=== PATIENT | female | born 1990 | race Caucasian/White ===

== ENCOUNTER 2019-02-28 21:04 | Emergency (ER) | payer MEDICAID, SELFPAY ==
[2019-02-28 21:08] VITALS: BP 101/62; PULSE 77; RESP 18; TEMP 36.6; O2SAT 98
[2019-02-28] MEDS: Metoclopramide 10 MG/2 ML VIAL IVP (21:25)
[2019-02-28] MEDS: Lactated Ringers 1,000 ML 1000 ML IV (21:26)
[2019-02-28] MEDS: Loperamide 2 MG CAP 4 MG PO (21:26)
[2019-02-28] MEDS: Metoclopramide 10 MG TAB 20 MG PO (21:45)
--- NOTE | 2019-02-28 21:45 | ED.GENADUL_ITS ---
Discharge Plan Disposition Patient Disposition: HOME Condition: Stable Discharge Details Chief Complaint: Abd Prob Clinical Impression: Nausea, vomiting and diarrhea Primary Care Provider: Jess Yadav ED Provider: Bora Roberts Home Meds and New Rx's Prescriptions: No Action methadone 10 mg/mL Solution 70 mg DAILY RF: 0 Discharge Instructions Instructions: Acute Nausea and Vomiting (ED) Additional Instructions: 1. Drink plenty of fluids. Add solids as tolerated. 2. Continue all medications as prescribed. 3. Acetaminophen 1000mg every 4 hours (up to 5 time a day) and/or ibuprofen 600mg every 6 hours as needed for fever or pain. 4. Reglan (metoclopramide) 10 mg every 6 hours as needed for nausea/vomiting. 5. Zantac 300 mg at bedtime. Return to the Emergency Department (ED) if your condition worsens, does not improve as expected, or for ANY other concerns. Specifically, return if you have new or uncontrolled pain, worsening fever, difficulty breathing, vomiting, or are unable to drink fluids. Stand Alone Forms: Work Release Medical Decision Making 28-year-old presents with recurrent nausea, vomiting, and diarrhea with associated crampy generalized abdominal pain. Nontoxic in appearance with minimal abdominal tenderness and otherwise a full normal exam. Clinically improved after receiving IV crystalloid and IV metoclopramide. Later receiving oral Imodium and oral ranitidine. Discharged home with to oral Reglan and a plan for outpatient follow-up. Pt evaluated immediately prior to discharge with improved symptoms, normal vital signs, and tolerating PO. The patient feels appropriate for discharge home. Discussed clinical/diagnostic findings. Discharged with a clear plan for outpatient follow up. Given usual and customary return instructions prior to discharge. Medical Records Medical records reviewed: Yes I reviewed the patient's medical records. HPI 28-year-old woman with a history of asthma, tobacco abuse. Presents with 1 day of persistent nausea, emesis, and diarrhea. Also has had associated crampy abdominal pain. Is been unable to tolerate oral intake without emesis. Emesis has been nonbilious and nonbloody. Denies melena, hematochezia, or diarrhea. H as no history of recurrent abdominal pain or similar symptoms. Denies a history of biliary disease or pancreatitis. Otherwise also denies fever/chills, dyspnea, chest pain, palpitations, urinary symptoms. Denies that she is . General Date/Time Provider Initiated Documentation: 02/28/19 21:16 . Related Data Home Medications Medication Instructions Recorded Confirmed methadone 70 mg DAILY 02/28/19 02/28/19 Allergies Allergy/AdvReac Type Severity Reaction Status Date / Time poison oak extract Allergy Intermediate Skin Rash Unverified 02/28/19 21:08 poison sumac extract Allergy Intermediate Skin Rash Unverified 02/28/19 21:08 poison lynn Allergy Intermediate Skin Rash Uncoded 02/28/19 21:08 General Stated Complaint: Abd Prob CUCO: 3 Review of Systems Review of Systems All systems are reviewed and are unremarkable except as noted in HPI and below: CONSTITUTIONAL: no fevers/chills, no weakness or change in appetite EYES: no change in vision HEENT: no throat pain or difficulty swallowing; no neck pain CARDIOVASCULAR: no chest pain, palpitations, leg swelling, or diaphoresis RESPIRATORY: no cough, dyspnea, wheezing GASTROINTESTINAL: Generalized abdominal cramping, nausea/emesis. Diarrhea. Denies abdominal bloating, bilious/bloody emesis, or rectal bleeding GENITOURINARY: no dysuria, flank pain, MUSCULOSKELETAL: no pack pain, myalgias, arthralgias INTEGUMENTARY: no rash, no wounds NEUROLOGIC: no headache, focal weakness, difficulty with speech, numbness PSYCHIATRIC: no confusion, no anxiety HEME: no easy bruising or bleeding ALLERGIC: no urticaria PFSH Medical History Asthma Tobacco use Surgical History Ligation of fallopian tube (03/07/15) Family History Mother Essential hypertension Renal insufficiency Social History Smoking/Tobacco Use Status: Current every day Alcohol Intake: never Drug use: Never Substance use type: marijuana Do you feel safe in your relationship?: Yes Exam Narrative Exam Narrative: Nursing note and vital signs have been reviewed and noted. GENERAL: alert, active, no acute distress, well -hydrated, well-nourished HEENT: atraumatic/normocephalic, PERRLA, EOMI, conjunctiva clear, external ears/canals normal, nasal mucosa normal NECK: supple, full range of motion, no mass, normal lymphadenopathy, no thyromegaly CARDIOVASCULAR: RRR, no murmurs, nl pulses, no edema PULMONARY: nl effort, no audible wheezing or stridor, nl breath sounds with no focal deficit. no chest wall tenderness ABDOMEN: soft, mild right upper quadrant and generalized lower abdominal tenderness, non-distended, no mass, no organomegaly EXTREMITY: normal muscle tone, all joints with FROM, no deformity or tenderness SKIN: no exanthem appreciated NEURO: gross motor exam normal, normal stance and gait PSYCH: alert and oriented, Course Vital Signs Temperature 97.9 F 02/28/19 21:08 Pulse 77 02/28/19 21:08 Respiratory Rate 18 02/28/19 21:08 Blood Pressure 101/62 02/28/19 21:08 Pulse Oximetry 98 02/28/19 21:08 Temperature 97.9 F 02/28/19 21:08 Temperature Source Temporal Artery Scan 02/28/19 21:08 Pulse 77 02/28/19 21:08 Respiratory Rate 18 02/28/19 21:08 Respiratory Effort 02/28/19 21:08 Blood Pressure 101/62 02/28/19 21:08 Blood Pressure Position Sitting 02/28/19 21:08 Pulse Oximetry 98 02/28/19 21:08 Oxygen Delivery Method Room Air 02/28/19 21:08 Oxygen Flow Rate 0 02/28/19 21:08 Pain Level 8 02/28/19 21:08
== END 2019-02-28 21:51 | disposition home or self-care (01) ==
PROVIDERS: Emergency Provider Emergency Medicine; PCP Nurse Practitioner
DX: R11.2 Nausea with vomiting, unspecified (principal); R19.7 Diarrhea, unspecified; R10.9 Unspecified abdominal pain
CPT/HCPCS: 96361; 96374; 99284; J2765

== ENCOUNTER 2019-04-19 10:30 | Emergency (ER) | payer MEDICAID, SELFPAY ==
[2019-04-19 10:36] VITALS: BP 118/67; PULSE 87; RESP 20; TEMP 36.7; O2SAT 94
--- NOTE | 2019-04-19 11:04 | DI.RAD_ITS ---
SYMPTOMS/DIAGNOSIS: COUGH PA AND LATERAL CHEST: Comparison 04/04/17. The heart is normal in size. The lungs are clear. The mediastinal structures and pleura appear intact. CONCLUSION: Normal chest.
--- NOTE | 2019-04-19 11:17 | W.ED.GENAD ---
Discharge Plan Disposition Patient Disposition: AGAINST MEDICAL ADVICE Discharge Details Chief Complaint: RespSymp Primary Care Provider: Jess Yadav ED Provider: Leo Lenz Home Meds and New Rx's Prescriptions: No Action methadone 10 mg/mL Solution 70 mg DAILY RF: 0 Medical Decision Making <Leo Lenz NP - Last Filed: 04/19/19 12:54> Patient presenting to the emergency department for chief complaint of cough and cold symptoms for 8 weeks. She states that initially she was told multiple times that this is viral than her primary care saw her a couple weeks ago and placed her on Augmentin. This provided very minimal improvement but did not fully resolve symptoms. Yesterday patient was out mowing and after being outside all day noticed significant chest tightness and cough. Patient states that she was up all night, due to difficulty breathing and significant sensation of heaviness over the left side of her chest. Patient does have history of asthma and states intermittent use of her albuterol. Physical exam shows clear lung sounds throughout all lung ward, normal cardiac exam otherwise nondiagnostic non-worrisome exam. Patient is not hypoxic, not tachycardic, not hypotensive, no signs of respiratory distress. Patient is a smoker. Plan to do labs, EKG, chest x-ray, and d-dimer. Highly suspicious for asthma exacerbation, possibly due to environmental allergies or smoking. staff respiratory therapist gave inhaler prior to my assessment but showed clear lung sounds patient stated minimal improvement of her perceived symptoms after this. EKG was reviewed reviewed with Dr. Merlos please see interpretation below Pending results patient stated that she had to go pickling grader her daughter and wanted to leave AGAINST MEDICAL ADVICE. Patient is alert and oriented x4, fully able to comprehend her own choices, and we thoroughly discussed risk of leaving. During the discussion I was informed of an elevated d-dimer but that lab wanted to repeat it given that they were not confident that this was a correct interpretation of result. Informed patient of this but again she stated that she did not want to stay in the emergency department and thoroughly understands risks that this could be a clot in her lungs, still pending troponin so heart attack/ACS cannot be ruled out, or other life-threatening illnesses or life debilitating processes cannot be excluded. After thorough and lengthy discussion patient stated that she had no other option but to leave and that she would return for continued work-up and evaluation. <Tristan Merlos MD - Last Filed: 04/19/19 11:19> ECG Data Attestation: I personally reviewed and interpreted this ECG (s) as follows: Prior ECG tracings: not available for review Interpretation: sinus rhythm, rate of 57, pr 158, no acute st t wave ischemic findings HPI <Leo Lenz NP - Last Filed: 04/19/19 12:54> General Mode of arrival: ambulatory. Date/Time Provider Initiated Documentation: 04/19/19 10:39. Limitations to Documentation: no limitations. Information obtained by: RN notes reviewed and old records reviewed. History of Present Illness 28 year old F presents to the emergency department with the chief complaint of Chest pain, cough, difficulty breathing, described as severe, with intensity rated at 8. Quality is described as other (Pressure), and is localized to the chest. Patient reports radiation to back. Patient started experiencing this week(s) (8, with worsening over the last day) and it has been constant. No relieving factors improve symptom(s), Patient did receive the following treatments prior to arrival, none Related Data Home Medications Medication Instructions Recorded Confirmed methadone 70 mg DAILY 02/28/19 04/19/19 Allergies Allergy/AdvReac Type Severity Reaction Status Date / Time poison oak extract Allergy Intermediate Skin Rash Unverified 04/19/19 10:40 poison sumac extract Allergy Intermediate Skin Rash Unverified 04/19/19 10:40 poison lynn Allergy Intermediate Skin Rash Uncoded 04/19/19 10:40 General Stated Complaint: RespSymp CUCO: 3 Review of Systems <Leo Lenz NP - Last Filed: 04/19/19 12:54> Constitutional Reports body ache(s), Reports chills, Reports fever(s), Reports headache(s) and Reports malaise Eyes Denies eye discharge ENT Reports as per HPI, Denies ear discharge, Denies otalgia, Reports headache(s), Reports nasal congestion, Reports nasal discharge, Denies neck pain, Reports sore throat and Denies throat swelling Cardiovascular Reports chest pain and Reports dyspnea Respiratory Reports cough and Reports dyspnea Musculoskeletal Denies joint swelling and Denies neck pain Integumentary/Breasts Denies rash Neurologic Reports headache(s) Allergic/Immunologic Denies throat swelling PFSH <Leo Lenz NP - Last Filed: 04/19/19 12:54> Medical History Asthma Tobacco use Surgical History Ligation of fallopian tube (03/07/15) Family History Mother Essential hypertension Renal insufficiency Social History Smoking/Tobacco Use Status: Current every day Alcohol Intake: never Drug use: Daily Substance use type: marijuana Do you feel safe in your relationship?: Yes Exam <Leo Lenz NP - Last Filed: 04/19/19 12:54> Const General: cooperative, comfortable and no acute distress Orientation: alert and awake HENMT Head: normal to inspection, normocephalic and atraumatic Ears: hearing grossly normal bilaterally and TM's normal bilaterally General nose exam: external nose normal Face and sinus: normal facial exam Mouth: oral mucosae normal, no drooling, no muffled voice and no trismus Throat: posterior oropharynx normal, tonsils normal and uvula midline Neck Neck: normal visual inspection, full ROM, no lymphadenopathy, no meningeal signs, trachea midline and supple Resp Effort & Inspection: normal respiratory effort, able to speak in complete sentences and cough Quality of cough: dry Auscultation: clear to auscultation bilaterally Cardio Rate: regular rate Rhythm: regular rhythm Heart Sounds: S1 normal, S2 normal, normal S1 and S2, no click, no gallops, no murmurs and no rubs Skin General skin exam: no rashes or lesions noted and dry skin (warm) Neuro General: alert, awake, oriented x3, gait normal and moves all extremities Cognition: normal cognition Speech: speech normal Course <Leo Lenz NP - Last Filed: 04/19/19 12:54> Vital Signs Temperature 36.7 C 04/19/19 10:36 Pulse 87 04/19/19 10:36 Respiratory Rate 20 04/19/19 10:36 Blood Pressure 118/67 04/19/19 10:36 Pulse Oximetry 94 L 04/19/19 10:36 Temperature 36.7 C 04/19/19 10:36 Temperature Source Tympanic 04/19/19 10:36 Pulse 87 04/19/19 10:36 Respiratory Rate 20 04/19/19 10:36 Respiratory Effort Non-Labored 04/19/19 10:41 Respiratory Depth Normal 04/19/19 10:41 Blood Pressure 118/67 04/19/19 10:36 Blood Pressure Position Sitting 04/19/19 10:36 Pulse Oximetry 94 L 04/19/19 10:36 Oxygen Delivery Method Room Air 04/19/19 10:36 Oxygen Flow Rate 0 04/19/19 10:36 Pain Level 8 04/19/19 10:36
[2019-04-19 12:12] LABS: HCT 36.5 % (36.0-46.0); HGB 12.6 g/dL (12.0-15.5); Mean Corp. HGB Concentration 34.5 g/dL (32.0-36.0); Mean Corpuscular Hemoglobin 31.3 pg (27.0-33.0); Mean Corpuscular Volume 90.8 fL (80-95); Mean Platelet Volume 9.5 fL (8.0-11.0); Platelet Count 404 x1000/uL (130-400); RBC 4.02 m/cumm (4.00-5.20); RBC Distribution Width 12.1 % (11.7-14.6); White Blood Cell Count 11.82 k/cumm (4.4-10.8)
[2019-04-19 12:26] LABS: ALT 19 U/L (12-78); AST 16 U/L (15-37); Albumin 3.4 g/dL (3.4-5.0); Anion Gap 8.6 mmol/L (3-11); BUN 14 mg/dL (7-18); Bilirubin, Total 0.3 mg/dL (0.2-1.0); CO2 25.4 mmol/L (21.0-32.0); CREATININE 0.69 mg/dL (0.55-1.02); Chloride 104 mmol/L (98-107); Glucose 89 mg/dL (70-100); Potassium 4.2 mmol/L (3.5-5.1); Sodium 138 mmol/L (136-145)
[2019-04-19 12:37] LABS: D-Dimer 582 ng/mlFEU (<500)
[2019-04-19 12:51] LABS: Absolute Neutrophil Count 5.67 k/cumm (1.2-6.7)
[2019-04-19 12:52] LABS: Absolute Eosinophil Count 0.83 k/cumm (0.0-0.7); Absolute Lymphocyte Count 4.73 k/cumm (1.2-3.4); Absolute Monocyte Count 0.47 k/cumm (0.11-0.7); Diff Comment Manual Differential
[2019-04-19 12:53] LABS: Absolute Basophil Count 0.12 k/cumm (0.0-0.2)
[2019-04-19 12:54] VITALS: BP 107/52; PULSE 70; RESP 18; TEMP 36.9; O2SAT 95
[2019-04-19 12:56] LABS: Alkaline Phosphatase 88 U/L (46-116); Troponin I < 0.02 ng/mL (0.00-0.06)
== END 2019-04-19 12:53 | disposition left against medical advice (07) ==
PROVIDERS: Emergency Provider Nurse Practitioner Family; PCP Nurse Practitioner
DX: R07.9 Chest pain, unspecified (principal); R05 Cough; Z53.29 Procedure and treatment not carried out because of patient's decision for other reasons; R06.02 Shortness of breath; R91.8 Other nonspecific abnormal finding of lung field; F17.210 Nicotine dependence, cigarettes, uncomplicated
CPT/HCPCS: 36415; 71275; 80053; 81025; 93005; 99285; 71046; 84484; 85025; 85379; 93010; 99284; J3490

== ENCOUNTER 2019-04-19 15:30 | Emergency (ER) | payer MEDICAID, SELFPAY ==
[2019-04-19 15:39] VITALS: BP 113/66; PULSE 82; RESP 16; TEMP 36.7; O2SAT 97
--- NOTE | 2019-04-19 16:12 | DI.CT_ITS ---
SYMPTOM/DIAGNOSIS: ELEVATED DIMER, OUGH AND CP FOR [address] SCAN CHEST: CT scan of the chest was performed according to the pulmonary embolus protocol. There are no priors for comparison. There is no evidence of a pulmonary embolus. The thoracic aorta is normal in appearance. No evidence of aneurysm or dissection is seen. The heart size is within normal limits. No significant pericardial effusion is seen No findings to suggest right ventricular dysfunction are present. No significant thoracic adenopathy, pleural effusion or pneumothorax is identified. The tracheobronchial tree is unremarkable. There are scattered peripheral air space opacities in the lungs predominantly the upper lobes. Some of these areas show a nodular component. This likely reflects an inflammatory infectious process. No focal consolidating infiltrates are seen. No acute osseous abnormalities identified. Upper abdominal images are unremarkable. IMPRESSION: No evidence of a pulmonary embolus, thoracic aortic dissection or aneurysm. 2. Scattered air space nodular appearing aur space opacities predominantly in the upper lobes peripherally. This likely reflects an infectious or inflammatory process. A follow up CT scan is recommended to document complete resolution and to exclude other etiologies. CT recommended in 3 to 6 months.
[2019-04-19] MEDS: Omnipaque 350 MG/ML 100 ML BTL IJ (17:35)
--- NOTE | 2019-04-19 18:03 | DI.VRAD_ITS ---
EXAM: CT Angiography Chest With Contrast EXAM DATE/TIME: 04/19/2019 4:14 PM CLINICAL HISTORY: 28 years old, female; Signs and symptoms and abnormal findings; Abnormal diagnostic tests; Elevated d-dimer; Cough; Patient HX: Cp for 8 weeks TECHNIQUE: Imaging protocol: Axial computed tomographic angiography images of the chest with intravenous contrast using CT angiography protocol. Coronal and sagittal reformatted images were created and reviewed. 3D rendering: MIP reconstructed images were created and reviewed. COMPARISON: CR XR CHEST 2V PA LATERAL 04/19/2019 12:12 PM FINDINGS: Pulmonary arteries: The pulmonary arteries enhance appropriately with no evidence of pulmonary embolism. Aorta: The aorta enhances appropriately without evidence of dissection or aneurysm. Thyroid: The visualized thyroid gland demonstrates no gross abnormality. Lungs: No tracheobronchial abnormalities. There are scattered foci of localized subpleural alveolar density versus sub-solid nodules in the upper lung ward bilaterally concerning for mild multifocal pulmonary infiltrate. Consider atypical organisms. No evidence of cavitation/abscess development. No empyema. Recommend CT at 3-6 months. Subsequent management based on the most suspicious nodule(s). (MacMah[place]aulette, et al., Fleischner Society, 2017). Pleural space: No pleural effusion. No pneumothorax. Heart: Heart size normal. No pericardial effusion. Mediastinum: The esophagus is largely contracted but demonstrates no gross abnormality. Upper abdomen: Visualized upper abdominal structures are unremarkable. Lymph nodes: No supraclavicular or axillary adenopathy. No mediastinal or hilar adenopathy. Bones/joints: No acute osseous abnormalities are identified. Soft tissues: The soft tissues of the chest wall demonstrate no gross abnormality. IMPRESSION: 1. No evidence of pulmonary embolism or aortic dissection. 2. Scattered small zones of subpleural alveolar density versus sub-solid nodules in the upper lung ward bilaterally as described. Atypical infection is favored. Recommend CT at 3-6 months. Subsequent management based on the most suspicious nodule(s). (Mac[place]lette, et al., Fleischner Society, 2017). Dictated and Authenticated by: Jose Hernandez MD. Ordering:TYLER Yoder MD
--- NOTE | 2019-04-19 18:17 | ED.GENADUL_ITS ---
Discharge Plan Disposition Patient Disposition: HOME Condition: Good Discharge Details Chief Complaint: SOB Clinical Impression: SOB (shortness of breath), Lesion of lung Primary Care Provider: Jess Yadav ED Provider: Paresh Guthrie Home Meds and New Rx's Prescriptions: New doxycycline hyclate 100 mg capsule 100 mg PO BID Qty: 20 RF: 0 prednisone 50 MG tablet 50 mg PO DAILY Qty: 5 RF: 0 No Action methadone 10 mg/mL Solution 70 mg DAILY RF: 0 Discharge Instructions Instructions: Pneumonia (ED) Additional Instructions: Your CT scan shows small nodules in your lungs which are most likely an atypical infection, but there is always a concern for cancerous lesions. There are also many other causes of these lesions that are not worrisome. Please take the antibiotic as directed and follow-up closely with your primary care provider for reassessment. You will most likely need a repeat CT scan in the next 3 to 6 months. Please take the prednisone as directed and take your inhaler every 6 hours for the next 3 days. If you notice any worsening of your symptoms, or any new symptoms such as vomiting, diarrhea, fever, chills, shortness of breath, chest pain, numbness, weakness, or fainting , please return immediately to the emergency department for reevaluation. Please follow up with your primary care provider as soon as possible for reassessment and reevaluation. As always, it was a pleasure participating in your medical care today. Referrals: Jess Yadav [Primary Care Provider] - Discharge Data Discharge Date/Time-TO BE ENTERED AT DEPARTURE: 04/19/19 18:56 Medical Decision Making This is a pleasant 28-year-old female who presents for 8 weeks of mild chest heaviness. She denies any significant productive cough, but does admit to an occasional mild cough. She was seen earlier today and had a thorough and relatively benign work-up aside for an elevated d-dimer. She left prematurely to go pick up man her child, and returns now for the completion of her work-up. D- dimer was minimally elevated, she has very low risk factors for pulmonary embolism. However because of her symptomatology CT angios was ordered for further evaluation. CT results returned demonstrate no evidence of PE per virtual radiologist there are some scattered small zones of subpleural alveolar densities versus sub-solid nodules. Atypical infection versus nodules is suspected. The remainder of her work-up being otherwise benign performed earlier today, I do not think any further additional work-up is indicated as she shows no signs of ACS, severe electrolyte abnormality, anemia, or other life- threatening pulmonary or respiratory disorder. Vital signs are notably unremarkable. I suspect that the patient's symptoms are most likely secondary to a combination of reactive airway disease and potentially an atypical infectious etiology. This would make sense why the Augmentin did not work previously. We will start her on doxycycline, steroid burst for her reactive airway disease and recommendations that she uses her inhaler every 6 hours the next few days. We also discussed the importance of close follow-up with her PCP in regards to repeat imaging in 3 to 6 months for further evaluation of the nodules. I have extensively reviewed the treatment plan and discharge instructions with the patient. I have addressed all patient concerns at this time. The patient was made aware of what symptoms to monitor for that would warrant a return to the emergency department. Discussed the plan with the patient, they demonstrate verbal understanding and agreement with our assessment and plan at this time. COMPARISON: CR XR CHEST 2V PA LATERAL 04/19/2019 12:12 PM FINDINGS: Pulmonary arteries: The pulmonary arteries enhance appropriately with no evidence of pulmonary embolism. Aorta: The aorta enhances appropriately without evidence of dissection or aneurysm. Thyroid: The visualized thyroid gland demonstrates no gross abnormality. Lungs: No tracheobronchial abnormalities. There are scattered foci of localized subpleural alveolar density versus sub-solid nodules in the upper lung ward bilaterally concerning for mild multifocal pulmonary infiltrate. Consider atypical organisms. No evidence of cavitation/abscess development. No empyema. Recommend CT at 3-6 months. Subsequent management based on the most suspicious nodule(s). (Sonam et al., Fleischner Society, 2017). Pleural space: No pleural effusion. No pneumothorax. Heart: Heart size normal. No pericardial effusion. Mediastinum: The esophagus is largely contracted but demonstrates no gross abnormality. Upper abdomen: Visualized upper abdominal structures are unremarkable. Lymph nodes: No supraclavicular or axillary adenopathy. No mediastinal or hilar adenopathy. Bones/joints: No acute osseous abnormalities are identified. Soft tissues: The soft tissues of the chest wall demonstrate no gross abnormality. IMPRESSION: 1. No evidence of pulmonary embolism or aortic dissection. 2. Scattered small zones of subpleural alveolar density versus sub-solid nodules in the upper lung ward bilaterally as described. Atypical infection is favored. Recommend CT at 3-6 months. Subsequent management based on the most suspicious nodule(s). (Sonam et al., Fleischner Society, 2017). Dictated and Authenticated by: Jose Hernandez MD. Ordering:TYLER Yoder MD HPI General Date/Time Provider Initiated Documentation: 04/19/19 15:33 . HPI Narrative: This is a pleasant 28-year-old female with a past medical history of a tubal ligation, reactive airway disease, who presents today for evaluation of chest heaviness of the last 8 weeks. She was given a prescription for Augmentin greater than a week ago, completed the course and noted no change. She noticed slight improvement when she uses her home inhaler. She denies any significant cough, fever, chills, weight loss. Denies PE risk factors such as recent long car rides, immobilization, recent surgery, prior history of DVT or PE, family history of PE or DVT, morbid obesity, exogenous estrogen, hemoptysis, history of cancer. He is a regular smoker. She was seen earlier today, had a notably thorough work-up by my colleague, which was relatively benign including normal cardiac markers. Her d-dimer was elevated but unfortunately she needed to leave prematurely AGAINST MEDICAL ADVICE to go pick up man her child. She returns now for the completion of her evaluation. She denies any acute changes since she was seen earlier today. D-dimer was elevated in the setting of normal renal function. No other complaints or modifying factors. Related Data Home Medications Medication Instructions Recorded Confirmed methadone 70 mg DAILY 02/28/19 04/19/19 doxycycline hyclate 100 mg PO BID #20 cap 04/19/19 prednisone 50 mg PO DAILY #5 tab 04/19/19 Previous Rx's Medication Instructions Recorded doxycycline hyclate 100 mg PO BID #20 cap 04/19/19 prednisone 50 mg PO DAILY #5 tab 04/19/19 Allergies Allergy/AdvReac Type Severity Reaction Status Date / Time poison oak extract Allergy Intermediate Skin Rash Unverified 04/19/19 15:43 poison sumac extract Allergy Intermediate Skin Rash Unverified 04/19/19 15:43 poison lynn Allergy Intermediate Skin Rash Uncoded 04/19/19 15:43 General Stated Complaint: SOB CUCO: 3 Review of Systems Review of Systems All systems reviewed & are unremarkable except as noted in HPI and below PFSH Social History Smoking/Tobacco Use Status: Current every day Alcohol Intake: never Drug use: Daily Substance use type: marijuana Do you feel safe in your relationship?: Yes Exam Narrative Exam Narrative: 1.Const: Well-nourished, Well-developed, appearing stated age 2.Eyes: PERRL, no conjunctival injection, and symmetrical lids. 3.ENT: Atraumatic external nose and ears. Moist MM. Neck: Symmetric, trachea midline, No thyromegaly. 4.CVS: +S1/S2, No murmurs or gallops. Peripheral pulses 2+ and equal in all extremities. Brisk capillary refill in all extremities. 5.RESP: Unlabored respiratory effort. Clear to auscultation bilaterally. No wheezes rales or rhonchi 6.GI: Soft, Nontender/Nondistended, No hepatosplenomegaly. No guarding or rebound. 7.MSK: Normocephalic/Atraumatic, Extremities w/o deformity or ttp No cyanosis or clubbing, Normal movement of all extremities 8.Skin: Warm, Dry. No rashes or lesions. 9.Neuro: healthcare translator II-XII grossly intact. Sensation grossly intact, no focal neurologic deficits. 10.Psych: (AAO) x3. Appropriate mood and affect Course Vital Signs Temperature 36.7 C 04/19/19 15:39 Pulse 82 04/19/19 15:39 Respiratory Rate 16 04/19/19 15:39 Blood Pressure 113/66 04/19/19 15:39 Pulse Oximetry 97 04/19/19 15:39 Temperature 36.7 C 04/19/19 15:39 Temperature Source Skin 04/19/19 15:39 Pulse 82 04/19/19 15:39 Respiratory Rate 16 04/19/19 15:39 Respiratory Effort Non-Labored 04/19/19 15:39 Blood Pressure 113/66 04/19/19 15:39 Blood Pressure Position Sitting 04/19/19 15:39 Pulse Oximetry 97 04/19/19 15:39 Oxygen Delivery Method Room Air 04/19/19 15:39 Oxygen Flow Rate 0 04/19/19 15:39 Pain Level 8 04/19/19 15:39
[2019-04-19 18:26] VITALS: RESP 16
== END 2019-04-19 18:56 | disposition home or self-care (01) ==
PROVIDERS: Emergency Provider Student in an Organized Health Care Education/Training Program; PCP Nurse Practitioner
DX: R06.02 Shortness of breath (principal); R91.8 Other nonspecific abnormal finding of lung field; F17.210 Nicotine dependence, cigarettes, uncomplicated
CPT/HCPCS: 36415; 71275; 99285; 99284; J3490

== ENCOUNTER 2020-08-25 04:06 | Emergency (ER) | payer MEDICAID, SELFPAY ==
[2020-08-25 04:09] VITALS: BP 119/67; PULSE 77; RESP 18; TEMP 37.3; O2SAT 98
--- NOTE | 2020-08-25 04:15 | ED.GENADUL_ITS ---
Discharge Plan Disposition Patient Disposition: HOME Condition: Good Discharge Details Clinical Impression: Acute left otitis media, Otitis media with rupture of tympanic membrane Primary Care Provider: Jess Yadav ED Provider: Paresh Guthrie Home Meds and New Rx's Prescriptions: New amoxicillin-pot clavulanate [Augmentin] 875-125 mg tablet 1 tab PO BID Qty: 20 RF: 0 Continued methadone 10 mg/mL Solution 90 mg DAILY RF: 0 Discontinued doxycycline hyclate 100 mg capsule 100 mg PO BID Qty: 20 RF: 0 prednisone 50 MG tablet 50 mg PO DAILY Qty: 5 RF: 0 No Action meclizine 25 mg tablet 25 mg PO PRN PRNRF: 0 fluoxetine 10 mg capsule 20 mg PO DAILY RF: 0 Discharge Instructions Instructions: Ruptured Eardrum (ED), Ear Infection (ED) Additional Instructions: At this time you had an ear infection in your left ear which unfortunately caused a rupture of your tympanic membrane. This will heal but it will take time. Please keep your ear dry at all times, do not let any water get inside. This will take a few weeks to heal. Please take the antibiotic as directed to help with the infection. Please take 1000 mg of Tylenol every 6 hours and 800 mg of ibuprofen every 6 hours to help with the pain. If you notice any worsening of your symptoms, or any new symptoms such as vomiting, diarrhea, fever, chills, shortness of breath, chest pain, numbness, weakness, or fainting , please return immediately to the emergency department for reevaluation. Please follow up with your primary care provider as soon as possible for reassessment and reevaluation. As always, it was a pleasure participating in your medical care today. Referrals: Jess Yadav [Primary Care Provider] - Medical Decision Making 29-year-old female presents today for evaluation of left ear pain. The patient states that for the last week she has had mild pain in her left ear, she has been trying home remedies with no improvement. This morning she woke up and heard a pop in her left ear had excruciating pain and noticed blood on her pillow. She came to the ER for further evaluation. She denies any fever or chills. She denies any trauma to the ear. She did place a small amount of hydrogen peroxide in the ear yesterday but this was otherwise uneventful. No other complaints at this time. No other modifying factors. Exam demonstrates evidence of ruptured tympanic membrane on the left, small amount of blood, and evidence of an otitis media on the left that is now drained. Hearing is definitely still present in the left ear, without significant reduction. This time we will give Augmentin, and Tylenol Motrin here as well as a prescription for Augmentin at home recommendation for continued NSAIDs at home. Discussed the importance of close follow-up with her PCP for reassessment in a week as well as the importance of keeping the ear dry. Also discussed the potential for need for ENT follow-up if the symptoms do not improve. I have extensively reviewed the treatment plan and discharge instructions with the patient and their family. I have addressed all patient concerns at this time. The patient and family was made aware of what symptoms to monitor for that would warrant a return to the emergency department. Discussed the plan with the patient and family, they demonstrate verbal understanding and agreement with our assessment and plan at this time. HPI General Date/Time Provider Initiated Documentation: 08/25/20 04:07 . HPI Narrative: 29-year-old female presents today for evaluation of left ear pain. T he patient states that for the last week she has had mild pain in her left ear, she has been trying home remedies with no improvement. This morning she woke up and heard a pop in her left ear had excruciating pain and noticed blood on her pillow. She came to the ER for further evaluation. She denies any fever or chills. She denies any trauma to the ear. She did place a small amount of hydrogen peroxide in the ear yesterday but this was otherwise uneventful. No other complaints at this time. No other modifying factors. Related Data Home Medications Medication Instructions Recorded Confirmed methadone 70 mg DAILY 02/28/19 04/19/19 amoxicillin-pot clavulanate 1 tab PO BID #20 tab 08/25/20 [Augmentin] fluoxetine 20 mg PO DAILY 08/25/20 08/25/20 meclizine 25 mg PO PRN PRN 08/25/20 08/25/20 Previous Rx's Medication Instructions Recorded amoxicillin-pot clavulanate 1 tab PO BID #20 tab 08/25/20 [Augmentin] Allergies Allergy/AdvReac Type Severity Reaction Status Date / Time poison oak extract Allergy Intermediate Skin Rash Unverified 04/19/19 15:43 poison sumac extract Allergy Intermediate Skin Rash Unverified 04/19/19 15:43 poison lynn Allergy Intermediate Skin Rash Uncoded 04/19/19 15:43 General Stated Complaint: EarProblem CUCO: 4 Review of Systems All systems reviewed & are unremarkable except as noted in HPI and below PFSH Medical History Asthma no MDI since adolescence. Tobacco use Surgical History Ligation of fallopian tube (03/07/15) laparoscopic bilateral salpingectomy. aoc Family History Mother Essential hypertension Renal insufficiency Social History Smoking/Tobacco Use Status: Current every day Alcohol Intake: never Drug use: Daily Substance use type: marijuana Do you feel safe in your relationship?: Yes Exam Narrative Exam Narrative: 1.Const: Well-nourished, Well-developed, appearing stated age 2.Eyes: PERRL, no conjunctival injection, and symmetrical lids. 3.ENT: Atraumatic external nose and ears. Moist MM. Neck: Symmetric, trachea midline, No thyromegaly. Right ear canal is unremarkable right TM unremarkable. Left tympanic membrane demonstrates evidence of small rupture in the inferior 6 o'clock position, small amount of blood is present in the canal and at the base of the drum with the trauma is present. Mild amount of purulent fluid remaining can be seen. No evidence of otitis externa. No evidence of mastoid tenderness. 4.CVS: +S1/S2, No murmurs or gallops. Peripheral pulses 2+ and equal in all extremities. Brisk capillary refill in all extremities. 5.RESP: Unlabored respiratory effort. Clear to auscultation bilaterally. No wheezes rales or rhonchi 6.GI: Soft, Nontender/Nondistended, No hepatosplenomegaly. No guarding or rebound. 7.MSK: Normocephalic/Atraumatic, Extremities w/o deformity or ttp No cyanosis or clubbing, Normal movement of all extremities 8.Skin: Warm, Dry. No rashes or lesions. 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 Sensation grossly intact, no focal neurologic deficits. 10.Psych: (AAO) x3. Appropriate mood and affect Course Vital Signs Vital signs: Vital Signs Temperature 37.3 C 08/25/20 04:09 Pulse 77 08/25/20 04:09 Respiratory Rate 18 08/25/20 04:09 Blood Pressure 119/67 08/25/20 04:09 Pulse Oximetry 98 08/25/20 04:09 Temperature 37.3 C 08/25/20 04:09 Temperature Source Tympanic 08/25/20 04:09 Pulse 77 08/25/20 04:09 Respiratory Rate 18 08/25/20 04:09 Blood Pressure 119/67 08/25/20 04:09 Pulse Oximetry 98 08/25/20 04:09 Oxygen Delivery Method Room Air 08/25/20 04:09 Oxygen Flow Rate 0 08/25/20 04:09 Pain Level 10 08/25/20 04:09
[2020-08-25] MEDS: Amoxicillin 875/Clav. 125 TAB PO (04:20)
[2020-08-25] MEDS: Ibuprofen 800 MG TAB PO (04:20)
[2020-08-25] MEDS: Acetaminophen 500 MG TAB 1000 MG PO (04:20)
== END 2020-08-25 04:25 | disposition home or self-care (01) ==
LOC: ER 04:31
PROVIDERS: Emergency Provider Student in an Organized Health Care Education/Training Program; PCP Nurse Practitioner Family
DX: H66.012 Acute suppurative otitis media with spontaneous rupture of ear drum, left ear (principal)
CPT/HCPCS: 99283

== ENCOUNTER 2020-10-01 14:48 | Outpatient (REF) | payer MEDICAID, SELFPAY ==
[2020-10-05 03:52] LABS: Patient Race White; SARS-CoV-2 RNA Undetected (Undetected); SARS-CoV-2 Specimen Source Nasal
== END 2020-10-01 15:08 ==
LOC: NCHCN 14:48
PROVIDERS: PCP Nurse Practitioner Family; Visit Provider Nurse Practitioner Family
DX: Z20.828 Contact with and (suspected) exposure to other viral communicable diseases (principal)
CPT/HCPCS: U0003

== ENCOUNTER 2021-02-27 17:43 | Outpatient (REF) | payer MEDICAID, SELFPAY ==
[2021-03-01 15:02] LABS: COVID-19 RT-PCR UVMMC Result Negative (Negative)
== END 2021-02-27 17:44 | disposition home or self-care (01) ==
LOC: NCHCN 17:43
PROVIDERS: PCP Nurse Practitioner Family; Visit Provider Nurse Practitioner Family
DX: Z20.822 Contact with and (suspected) exposure to COVID-19 (principal); J02.9 Acute pharyngitis, unspecified
CPT/HCPCS: U0003

== ENCOUNTER 2021-10-21 00:52 | Outpatient (CLI) | payer MEDICAID, SELFPAY ==
--- NOTE | 2021-10-21 08:30 | RT.EKG_ITS ---
APPROVED REPORT Exam: Resting ECG Reason for Exam: high risk med Patient Location: O HR:55 bpm ECG Measurements Heart Rate 55 AXIS UT 163 P 51 QRSd 89 QRS 53 QT 431 T 35 QTc 413 Conclusion Sinus bradycardia...rate< 60 Abnrm R prog, consider ASMI or lead placement...Q >30mS, diminished R, V1-V2
== END 2021-10-21 00:53 | disposition home or self-care (01) ==
LOC: RT 00:53
PROVIDERS: PCP Nurse Practitioner Family; Visit Provider Family Medicine
DX: Z51.81 Encounter for therapeutic drug level monitoring (principal); R00.1 Bradycardia, unspecified
CPT/HCPCS: 93005; 93010

== ENCOUNTER 2021-10-21 00:59 | Outpatient (CLI) | payer MEDICAID, SELFPAY ==
[2021-10-21 11:13] LABS: Source Nasal/Nares
[2021-10-21 14:17] LABS: COVID-19 PCR Negative (Negative)
== END 2021-10-21 01:00 | disposition home or self-care (01) ==
LOC: LBO 00:59
PROVIDERS: Student in an Organized Health Care Education/Training Program; PCP Nurse Practitioner Family; Visit Provider Student in an Organized Health Care Education/Training Program
DX: Z20.822 Contact with and (suspected) exposure to COVID-19 (principal)
CPT/HCPCS: 87635

== ENCOUNTER 2021-10-22 11:40 | Day surgery (SDC) | payer MEDICAID, SELFPAY ==
--- NOTE | 2021-10-22 07:53 | PDOC.DSDIS_ITS ---
Documented by User: JULIANE Rosas 10/22/21 07:54 Discharge Plan Disposition Patient Disposition: HOME Condition: Good Discharge Details Reason For Visit: Right ECTR Attending Provider: Rowdy Gruber Primary Care Provider: Nupur Cordoba Home Meds and New Rx's Prescriptions: New oxycodone 5 mg tablet 5 mg PO Q6H Qty: 12 RF: 0 Continued dextroamphetamine-amphetamine [Adderall XR] 20 mg capsule,extended release 24hr 20 mg PO DAILY RF: 0 albuterol sulfate [ProAir HFA] 90 mcg/actuation HFA aerosol inhaler 1 - 2 puff inhalation .Q4-6H PRNRF: 0 montelukast 10 mg tablet 10 mg PO DAILY RF: 0 ondansetron HCl [Zofran] 4 mg tablet 4 mg PO TID PRNRF: 0 hydroxyzine HCl 10 mg tablet 10 mg PO TID PRNRF: 0 methadone 10 mg/mL concentrate 80 mg PO DAILY RF: 0 acetaminophen 500 mg tablet 1,000 mg PO TID PRNRF: 0 meclizine 25 mg tablet 25 - 50 mg PO BID PRNRF: 0 bupropion HCl 300 mg tablet extended release 24 hr 300 mg PO QAM RF: 0 sumatriptan succinate [Imitrex] 50 mg tablet 50 mg PO ONCE RF: 0 hydroxyzine HCl 25 mg tablet 25 mg PO Q8H RF: 0 escitalopram oxalate 10 mg tablet 15 mg PO DAILY RF: 0 ibuprofen 600 mg tablet 600 mg PO TID PRNQty: 30 RF: 0 Discharge Instructions Stand Alone Forms: Anesthesia Discharge Inst., Yasmani Loomis Tunnel Release, Corinne Solo ([facility]) Referrals: Rowdy Gruber MD [ [facility] STAFF PHYSICIAN] - Activity:: Activity as Tolerated Remove Dressings/Wound Care:: 72 hours Shower/Bathe:: 72 hours Diet:: As Tolerated Discharge Orders Discharge Orders: Discharge Order (Routine); Ordered 10/22/21 Ordered By: Peggy Umanzor DS: Diagnosis Discharge Diagnosis (1) Right carpal tunnel syndrome: Status: Acute Documented by User: Rowdy Gruber MD 10/22/21 15:48 Discharge Plan Disposition Patient Disposition: HOME Condition: Good Discharge Details Reason For Visit: Right ECTR Attending Provider: Rowdy Gruber Primary Care Provider: Nupur Cordoba Home Meds and New Rx's Prescriptions: New oxycodone 5 mg tablet 5 mg PO Q6H Qty: 12 RF: 0 Continued dextroamphetamine-amphetamine [Adderall XR] 20 mg capsule,extended release 24hr 20 mg PO DAILY RF: 0 albuterol sulfate [ProAir HFA] 90 mcg/actuation HFA aerosol inhaler 1 - 2 puff inhalation .Q4-6H PRNRF: 0 montelukast 10 mg tablet 10 mg PO DAILY RF: 0 ondansetron HCl [Zofran] 4 mg tablet 4 mg PO TID PRNRF: 0 hydroxyzine HCl 10 mg tablet 10 mg PO TID PRNRF: 0 methadone 10 mg/mL concentrate 80 mg PO DAILY RF: 0 acetaminophen 500 mg tablet 1,000 mg PO TID PRNRF: 0 meclizine 25 mg tablet 25 - 50 mg PO BID PRNRF: 0 bupropion HCl 300 mg tablet extended release 24 hr 300 mg PO QAM RF: 0 sumatriptan succinate [Imitrex] 50 mg tablet 50 mg PO ONCE RF: 0 hydroxyzine HCl 25 mg tablet 25 mg PO Q8H RF: 0 escitalopram oxalate 10 mg tablet 15 mg PO DAILY RF: 0 ibuprofen 600 mg tablet 600 mg PO TID PRNQty: 30 RF: 0 Discharge Instructions Stand Alone Forms: Anesthesia Discharge Inst., Yasmani Loomis Tunnel Release, Corinne Solo ([facility]) Referrals: Rowdy Gruber MD [ [facility] STAFF PHYSICIAN] - Activity:: Activity as Tolerated Remove Dressings/Wound Care:: 72 hours Shower/Bathe:: 72 hours Diet:: As Tolerated Discharge Orders Discharge Orders: Discharge Order (Routine); Ordered 10/22/21 Ordered By: Peggy Umanzor
[2021-10-22 11:52] VITALS: BP 115/61; PULSE 79; RESP 16; TEMP 37; O2SAT 96
[2021-10-22] MEDS: Lactated Ringers 1,000 ML 80 ML IV (12:25)
--- NOTE | 2021-10-22 13:05 | ANES.PREOP_ITS ---
General Info Date of Service Date Performed: 10/22/21 Height: 5 ft 3 in Weight: 83.7 kg Body Mass Index (BMI): 32.6 Surgical Procedure: Operation Date: 10/22/21 13:10 Proposed Procedures Side Surgeon p (R) Wrist ECTR Right Rowdy Gruber MD Meds Allergies and Home Medications Allergies Allergy/AdvReac Type Severity Reaction Status Date / Time poison oak extract Allergy Intermediate Skin Rash Unverified 10/22/21 12:00 poison sumac extract Allergy Intermediate Skin Rash Unverified 10/22/21 12:00 fluoxetine [From Prozac] AdvReac Severe suicidal Verified 10/22/21 12:02 poison lynn Allergy Intermediate Skin Rash Uncoded 10/22/21 12:00 Home Medication Medication Instructions Recorded acetaminophen 500 mg tablet 1,000 mg PO TID PRN tab 07/03/21 albuterol sulfate 90 mcg/actuation 1 - 2 puff INHALATION .Q4-6H PRN g 07/03/21 aerosol inhaler bupropion HCl 300 mg 24 hr tablet, 300 mg PO QAM 07/03/21 extended release hydroxyzine HCl 10 mg tablet 10 mg PO TID PRN 07/03/21 ibuprofen 600 mg tablet 600 mg PO TID PRN 07/03/21 meclizine 25 mg tablet 25 - 50 mg PO BID PRN tab 07/03/21 methadone 10 mg/mL oral concentrate 80 mg PO DAILY ml 07/03/21 montelukast 10 mg tablet 10 mg PO DAILY 07/03/21 ondansetron HCl 4 mg tablet 4 mg PO TID PRN tab 07/03/21 sumatriptan succinate 50 mg tablet 50 mg PO ONCE 07/03/21 dextroamphetamine-amphetamine ER 20 mg PO DAILY 07/28/21 20 mg 24hr capsule,extend release escitalopram oxalate 15 mg PO DAILY 10/21/21 hydroxyzine HCl 25 mg PO Q8H 10/21/21 Current Visit Medications: Current Medications Generic Name Dose Route Start Last Admin Trade Name Freq PRN Reason Stop Dose Admin Acetaminophen 650 mg 10/22/21 07:52 Acetaminophen 325 Mg Tab PO Q4H PRN PRN Ringer's Solution 1,000 mls @ 80 mls/hr 10/22/21 06:00 10/22/21 12:25 IV 01/06/22 23:59 80 mls/hr INFUSION HARISH Administration Cefazolin Sodium/Dextrose 2 gm in 50 mls @ 100 mls/hr 10/22/21 06:00 Ancef Duplex IVPB 11/20/21 23:59 PREOP HARISH Ondansetron HCl 4 mg/ Sodium 52 mls @ 200 mls/hr 10/22/21 07:52 Chloride IVPB Q6H PRN PRN IV Miscellaneous Supplies 1 each 10/22/21 06:00 Iv Access IV 11/20/21 23:59 DIRECTED HARISH Oxycodone HCl 5 mg 10/22/21 07:52 Oxycodone 5 Mg Tab PO Q3H PRN PRN Pain Sodium Chloride 0 ml 10/22/21 06:00 Normal Saline Flush 10 Ml Syr IV 11/20/21 23:59 PRN PRN Sodium Chloride 0 ml 10/22/21 06:00 Normal Saline 10 Ml Vial IJ 11/20/21 23:59 DIRECTED PRN Sterile Water 0 ml 10/22/21 06:00 Water,Injection,Sterile 10 Ml Vial IJ 11/20/21 23:59 DIRECTED PRN PFSH Active Problems Active Problems: Problem Status Onset Code Left carpal tunnel syndrome G56.02 Right carpal tunnel syndrome G56.01 Abnormal auditory perception 02/05/14 H93.299 Conductive hearing loss 02/05/14 H90.2 Z33.1 Delivery normal Medical History Active Problem List Left carpal tunnel syndrome (Acute) Right carpal tunnel syndrome (Acute) Abnormal auditory perception (Acute 02/05/14) Conductive hearing loss (Acute 02/05/14) (Acute) Delivery normal (Acute) Medical History ADHD Anxiety Asthma no MDI since adolescence. Bilateral temporomandibular joint disorder Depression History of paresthesia Indeterminate pulmonary nodules Migraine Opiate dependence Oppositional defiant disorder PTSD (post-traumatic stress disorder) Tobacco use Vertigo Surgical History Surgical History Ligation of fallopian tube (03/07/15) laparoscopic bilateral salpingectomy. aoc Tobacco Smoking/Tobacco Use Status: Current every day Tobacco Type: cigarettes Smoking cigarettes per day: 5 Alcohol Alcohol Intake: never Substance Use Substance use: Daily Substance use type: marijuana Details: smoked bo this morning 10.22.21 Vital Signs and Lab Results Vital Signs Most Recent Vital Signs in EMR: Most Recent Vital Signs Temp Pulse Resp BP Pulse Ox 37.0 C 79 16 115/61 96 10/22/21 11:52 10/22/21 11:52 10/22/21 11:52 10/22/21 11:52 10/22/21 11:52 Lab Results Blood Type / Crossmatch: No Data to Display Complete Blood Count: No Data to Display Complete Metabolic Panel: No Data to Display Liver Function Panel: No Data to Display Coagulation Panel: No Data to Display Cardiac Panel: No Data to Display Arterial Blood Gas: No Data to Display Venous Blood Gas: No Data to Display Pancreas Panel: No Data to Display Thyroid Panel: No Data to Display Infectious Disease: Coronavirus (COVID-19)(PCR) Negative (Negative) 10/21/21 08:47 10/21/21 Coronavirus 2019 Source Nasal/Nares 10/21/21 08:47 10/21/21 Blood Cultures: No Data to Display Toxicology Panel: No Data to Display Panel: No Data to Display Imaging and Studies Imaging and Studies Study information below may be from another EMR and interpreted by another provider. Please see original notes in EMR for more complete details. EKG Summary: 10/21/21: sinus bakari, abnormal r progression. Anesthesia Assessment and Plan Anesthesia History Personal History: No History of Anesthesia Complications Family History: No Family History of Anesthesia Complications Exercise Tolerance Exercise Tolerance: Metabolic Equivalents>4 Cardiac & Pulmonary Exam Cardiac Exam: Normal S1/S2 Heart Sounds Pulmonary Exam: Clear Bilateral Breath Sounds Implantable Cardiac Device Does patient have a Pacemaker or an ICD?: No Airway Exam Known Difficult Airway: No Mallampati Class: 2 Mouth Opening: Narrow (< 3cm) Thyromental Distance: Greater than 3 cm Neck Range of Motion: Full ROM Neck Circumference: Normal Teeth Condition: Normal Dentition and Other (tounge ring, which she will take out. ) ASA Classification ASA Score: ASA 2 Emergency Case?: No NPO Status NPO Status: NPO Clears >2 hours, Solids >8 hours Status Status: Negative HCG Anesthesia Plan Resuscitation Status: Full Code Anesthesia Technique: General Anesthesia Airway Planned: Natural Airway Monitors Used: Standard Monitors Preoperative Comments:: 31 yo female for ECTR. Sig PMHx: anxiety, ADHD, asthma (only used when she has colds), opiate dep endence (methadone), PTSD, current smoker tobacco/marijuana.
--- NOTE | 2021-10-22 13:10 | W.PREOPHP ---
Date of service: 10/22/21 Time of Service: 13:10 Assessment and Plan Assessment and plan (1) Right carpal tunnel syndrome: Status: Acute Assessment and plan: Cammy is a 31-year-old with carpal tunnel syndrome of the right side. Please see the previous office note for complete detail of her history. She has failed conservative, nonoperative options and desires to proceed with carpal tunnel release. I discussed the technical details of carpal tunnel release and that I perform an endoscopic release, but would make a larger, open, incision if necessary for visualization. I discussed the risks of the procedure to include, but not limited to, bleeding, infection, palmar pain, stiffness, damage to nerves, damage to vessels, damage to tendons, weakness, recurrence, and incomplete release. Given these risks, [PATIENT NAME] desires to proceed. History of Present Illness History of Present Illness Chief Complaint: Right Carpal Tunnel Syndrome Narrative: Cammy is a 31-year-old who has carpal tunnel syndrome of the right side. Please see the previous office note for complete detailed history. She continues have symptoms about the right hand. She has had no sick contacts. She has had no change her medical history. She has tested negative for COVID-19. [facility] Active Problem List Left carpal tunnel syndrome (Acute) Right carpal tunnel syndrome (Acute) Abnormal auditory perception (Acute 02/05/14) Conductive hearing loss (Acute 02/05/14) (Acute) Delivery normal (Acute) Medical History ADHD Anxiety Asthma no MDI since adolescence. Bilateral temporomandibular joint disorder Depression History of paresthesia Indeterminate pulmonary nodules Migraine Opiate dependence Oppositional defiant disorder PTSD (post-traumatic stress disorder) Tobacco use Vertigo Surgical History Ligation of fallopian tube (03/07/15) laparoscopic bilateral salpingectomy. [facility] Family History Mother Essential hypertension Renal insufficiency Social History Smoking/Tobacco Use Status: Current every day Tobacco Type: cigarettes Smoking risk assessment performed?: Yes Alcohol Intake: never Drug use: Daily Substance use type: marijuana Details: smoked bo this morning 10.22.21 Household members: significant other and children Housing: apartment Number of Children: 3 Pets and animals: No Current gender identity: female What type of physical activity do you participate in: walking and bicycling Seatbelt use: sometimes Do you feel safe at home: Yes Do you feel safe in your relationship?: Yes Meds Allergies and Home Medications Allergies Allergy/AdvReac Type Severity Reaction Status Date / Time poison oak extract Allergy Intermediate Skin Rash Unverified 10/22/21 12:00 poison sumac extract Allergy Intermediate Skin Rash Unverified 10/22/21 12:00 fluoxetine [From Prozac] AdvReac Severe suicidal Verified 10/22/21 12:02 poison lynn Allergy Intermediate Skin Rash Uncoded 10/22/21 12:00 Home Medications Medication Instructions Recorded Confirmed Type acetaminophen 500 mg tablet 1,000 mg PO TID PRN tab 07/03/21 10/22/21 History albuterol sulfate 90 mcg/actuation 1 - 2 puff INHALATION .Q4-6H PRN g 07/03/21 10/22/21 History aerosol inhaler bupropion HCl 300 mg 24 hr tablet, 300 mg PO QAM 07/03/21 10/22/21 History extended release hydroxyzine HCl 10 mg tablet 10 mg PO TID PRN 07/03/21 10/22/21 History ibuprofen 600 mg tablet 600 mg PO TID PRN 07/03/21 10/22/21 History meclizine 25 mg tablet 25 - 50 mg PO BID PRN tab 07/03/21 10/22/21 History methadone 10 mg/mL oral concentrate 80 mg PO DAILY ml 07/03/21 10/22/21 History montelukast 10 mg tablet 10 mg PO DAILY 07/03/21 10/22/21 History ondansetron HCl 4 mg tablet 4 mg PO TID PRN tab 07/03/21 10/22/21 History sumatriptan succinate 50 mg tablet 50 mg PO ONCE 07/03/21 10/22/21 History dextroamphetamine-amphetamine ER 20 mg PO DAILY 07/28/21 10/22/21 History 20 mg 24hr capsule,extend release escitalopram oxalate 15 mg PO DAILY 10/21/21 10/22/21 History hydroxyzine HCl 25 mg PO Q8H 10/21/21 10/22/21 History Exam Resp Auscultation: clear to auscultation bilaterally Cardio Rate: regular rate Rhythm: regular rhythm Results Last Vital Signs Temp 37.0 C 10/22/21 11:52 Pulse 79 10/22/21 11:52 Resp 16 10/22/21 11:52 BP 115/61 10/22/21 11:52 Pulse Ox 96 10/22/21 11:52
[2021-10-22 13:25] VITALS: BMI 32.6
[2021-10-22] MEDS: ceFAZolin 2 GM/50 ML BAG IVPB (13:49)
[2021-10-22] MEDS: Sodium Bicarbonate 50 MEQ/50 ML VIAL (14:00)
[2021-10-22 14:29] VITALS: BP 123/81; PULSE 76; RESP 18; TEMP 36.1; O2SAT 99
[2021-10-22 14:50] VITALS: BP 111/70; PULSE 60; RESP 20; TEMP 36.4; O2SAT 99
--- NOTE | 2021-10-22 14:50 | W.ANESPOSTOP ---
Postoperative Evaluation Date, Time and Location Date Performed: 10/22/21 Time Performed: 14:50 Patient Location: Day Surgery Unit Vital Signs Most Recent Imported Vital Signs: Most Recent Vital Signs Temp Pulse Resp BP Pulse Ox 36.1 C L 76 18 123/81 99 10/22/21 14:29 10/22/21 14:29 10/22/21 14:29 10/22/21 14:29 10/22/21 14:29 Pain Score Most Recent Pain Score: Most Recent Pain Score Pain Level 6 10/22/21 14:29 Assessment Mental Status: Awake (Alert & Oriented to Patient Baseline) Airway and Respiratory Function: Patent airway with normal (patient baseline) respiratory exam Cardiovascular Function: Hemodynamically Stable Hydration Status: Adequately Hydrated Nausea & Vomiting: No Nausea or Vomiting Pain: Pt. Denies Any Pain Peripheral Nerve Block: Patient did not receive a nerve block
[2021-10-22] MEDS: oxyCODONE 5 MG TAB PO (14:56)
--- NOTE | 2021-10-22 22:39 | ROE_ITS ---
Date of service: 10/22/21 Time of Service: 14:55 Operative Note Operative Note DATE OF PROCEDURE: 10/22/21 PRE-OP DIAGNOSIS: Left carpal tunnel syndrome POST-OP DIAGNOSIS: same PROCEDURE: Left Endoscopic Carpal Tunnel Release SURGEON: Rowdy Gruber Refer to Anesthesia Record ESTIMATED BLOOD LOSS: 0 PATHOLOGY: none sent TOURNIQUET TIME: 6 COMPLICATIONS: None Patient was transported to: same day Patient's condition: stable Indications: I have seen Cammy in clinic for symptoms of carpal tunnel syndrome. The numbness, tingling, and pain limited function. Clinical exam findings [with nerve conduction tests ]confirmed the diagnosis of carpal tunnel syndrome. Nonoperative measures such as bracing, time, activity modifications had been tried but disability and pain persisted. I discussed carpal tunnel release with the patient. I reviewed the risks of the procedure to include, but not limited to, bleeding, infection, pain, stiffness, incomplete release, damage to nerves or vessels, persistent numbness, recurrence. Despite these risks, the patient elected to proceed. Findings: There was tightened carpal tunnel. This was dilated and released successfully with the endoscopic with increased space within the tunnel. The antebrachial fascia was released proximally freeing the median nerve at the wrist. Procedure Description: Cammy was greeted in the preoperative holding area where the correct side was identified and marked. The consent was reviewed with the patient and signed. The history and physical was updated. All questions were answered. She was taken back to the operating room. The patient was placed into the supi ne position on the operating room table with the left arm on an arm board. A nonsterile tourniquet was placed high onto the arm. All bony prominences were well padded. Prophylactic antibiotics in the form of Cefazolin were administered. The left arm was then prepped with Chloraprep and draped in a standard fashion with stockinette and extremity drape. A timeout to confirm correct identity, side and site, procedure, allergies, anesthesia, and medical concerns was performed. The surgical site was marked in the volar wrist creases in line with the radial border of the fourth ray. This area was anesthetized with approximately 6cc of 1% Lidocaine. The limb was then exsanguinated with an Esmarch. The skin was incised with a 15 blade, approximately 1cm. The skin only was cut and the jordi per tissue was dissected bluntly with a tenotomy scissor, avoiding passing nerve and venous structures. The fascia was penetrated and opened bluntly. A two- prong skin hook was placed under this proximal fascial edge. A series of hamate finders were used to identify and dilate the carpal tunnel. Synovial elevator was used to free synovial attachments to the underside of the transverse carpal ligament. My thumb was kept in the palm to nova the distal extent of the carpal tunnel and correctly position the hand. The Microaire endoscope was inserted without difficulty and without resistance. Excellent visualization showed horizontally running fibers of the transverse carpal ligament (TCL). The distal extent of the TCL was visualized and the end of the scope palpated with the thumb. The blade was elevated and withdrawn from distal to proximal. The TCL was split into two flaps. The endoscope was reinserted to confirm complete release and any remnant ligament was incised. The scope was withdrawn and the proximal aspect of the carpal tunnel was grossly inspected and appeared release with the median nerve visible. The antebrachial fascia at the level of the wrist was then freed from the overlying skin and then the underlying median nerve with blunt dissection. This was transected longitudinally for about 3cm proximal to the wrist incision. The wound was then irrigated with easy flow of irrigant distally and proximally. The incision was closed with a single 4-0 Nylon suture. The wound was dressed with Xeroform, Gauze, Kerlix and Juan Carlos. The tourniquet was deflated with the initial dressing and held with some pressure. Blood flow returned easily to all digits with capillary refill less than 2 seconds. The patient tolerated the procedure well and was returned to the Same Day Surgery area in a stable condition suffering no known complication.
== END 2021-10-22 15:25 | disposition home or self-care (01) ==
LOC: SUR 11:40
PROVIDERS: PCP Nurse Practitioner Family; Visit Provider Student in an Organized Health Care Education/Training Program
PROC: 01N54ZZ Release Median Nerve, Percutaneous Endoscopic Approach (ICD-10-PCS; CPT 29848; principal; 2021-10-22 13:00)
DX: F17.210 Nicotine dependence, cigarettes, uncomplicated; F11.20 Opioid dependence, uncomplicated; G56.02 Carpal tunnel syndrome, left upper limb
CPT/HCPCS: 29848; J0690; J1885; J2001; J2250

== ENCOUNTER 2021-11-03 01:54 | Outpatient (CLI) | payer MEDICAID, SELFPAY ==
[2021-11-03 13:32] LABS: Source Nasal/Nares
[2021-11-03 18:38] LABS: COVID-19 PCR Negative (Negative)
== END 2021-11-03 01:55 | disposition home or self-care (01) ==
LOC: LBO 01:54
PROVIDERS: PCP Nurse Practitioner Family; Visit Provider Student in an Organized Health Care Education/Training Program
DX: Z20.822 Contact with and (suspected) exposure to COVID-19 (principal); Z01.818 Encounter for other preprocedural examination
CPT/HCPCS: 87635

== ENCOUNTER 2021-11-04 12:13 | Day surgery (SDC) | payer MEDICAID, SELFPAY ==
--- NOTE | 2021-11-04 11:10 | W.ANESPRE ---
General Info Date of Service Date Performed: 11/04/21 Height: 5 ft 3 in Weight: 83.7 kg Body Mass Index (BMI): 32.6 Surgical Procedure: Operation Date: 11/04/21 14:55 Proposed Procedures Side Surgeon p (L) Wrist ECTR Left Rowdy Gruber MD Meds Allergies and Home Medications Allergies Allergy/AdvReac Type Severity Reaction Status Date / Time poison oak extract Allergy Intermediate Skin Rash Unverified 11/04/21 12:24 poison sumac extract Allergy Intermediate Skin Rash Unverified 11/04/21 12:24 fluoxetine [From Prozac] AdvReac Severe suicidal Verified 11/04/21 12:24 poison lynn Allergy Intermediate Skin Rash Uncoded 11/04/21 12:24 Home Medication Medication Instructions Recorded acetaminophen 500 mg tablet 1,000 mg PO TID PRN tab 07/03/21 albuterol sulfate 90 mcg/actuation 1 - 2 puff INHALATION .Q4-6H PRN g 07/03/21 aerosol inhaler bupropion HCl 300 mg 24 hr tablet, 300 mg PO QAM 07/03/21 extended release hydroxyzine HCl 10 mg tablet 10 mg PO TID PRN 07/03/21 meclizine 25 mg tablet 25 - 50 mg PO BID PRN tab 07/03/21 methadone 10 mg/mL oral concentrate 90 mg PO DAILY ml 07/03/21 montelukast 10 mg tablet 10 mg PO DAILY 07/03/21 ondansetron HCl 4 mg tablet 4 mg PO TID PRN tab 07/03/21 sumatriptan succinate 50 mg tablet 50 mg PO ONCE 07/03/21 dextroamphetamine-amphetamine ER 20 mg PO DAILY 07/28/21 20 mg 24hr capsule,extend release escitalopram oxalate 15 mg PO DAILY 10/21/21 hydroxyzine HCl 25 mg PO Q8H 10/21/21 ibuprofen 600 mg PO TID PRN #30 tab 10/22/21 Current Visit Medications: Current Medications Generic Name Dose Route Start Last Admin Trade Name Freq PRN Reason Stop Dose Admin Ringer's Solution 1,000 mls @ 80 mls/hr 11/04/21 06:00 IV 11/14/21 23:59 INFUSION HARISH Cefazolin Sodium/Dextrose 2 gm in 50 mls @ 100 mls/hr 11/04/21 06:00 Ancef Duplex IVPB 11/04/21 16:00 PREOP HARISH IV Miscellaneous Supplies 1 each 11/04/21 06:00 Iv Access IV 11/14/21 23:59 DIRECTED HARISH Sodium Chloride 0 ml 11/04/21 06:00 Normal Saline Flush 10 Ml Syr IV 11/14/21 23:59 PRN PRN Sodium Chloride 0 ml 11/04/21 06:00 Normal Saline 10 Ml Vial IJ 11/14/21 23:59 DIRECTED PRN Sterile Water 0 ml 11/04/21 06:00 Water,Injection,Sterile 10 Ml Vial IJ 11/14/21 23:59 DIRECTED PRN PFSH Active Problems Active Problems: Problem Status Onset Code Left carpal tunnel syndrome G56.02 Abnormal auditory perception 02/05/14 H93.299 Conductive hearing loss 02/05/14 H90.2 Z33.1 Delivery normal Medical History Medical History ADHD Anxiety Asthma no MDI since adolescence. Bilateral temporomandibular joint disorder Depression History of paresthesia Indeterminate pulmonary nodules Migraine Opiate dependence Oppositional defiant disorder PTSD (post-traumatic stress disorder) Tobacco use Vertigo Surgical History Surgical History Ligation of fallopian tube (03/07/15) laparoscopic bilateral salpingectomy. aoc Right carpal tunnel syndrome Status post ECTR DOS: 10/22/2021 Tobacco Smoking/Tobacco Use Status: Current every day Tobacco Type: cigarettes Smoking cigarettes per day: 5 Alcohol Alcohol Intake: never Substance Use Substance use: Daily Substance use type: marijuana Details: smoked bo this morning 10.22.21 Vital Signs and Lab Results Lab Results Blood Type / Crossmatch: No Data to Display Complete Blood Count: No Data to Display Complete Metabolic Panel: No Data to Display Liver Function Panel: No Data to Display Coagulation Panel: No Data to Display Cardiac Panel: No Data to Display Arterial Blood Gas: No Data to Display Venous Blood Gas: No Data to Display Pancreas Panel: No Data to Display Thyroid Panel: No Data to Display Infectious Disease: Coronavirus (COVID-19)(PCR) Negative (Negative) 11/03/21 10:32 11/03/21 Coronavirus 2019 Source Nasal/Nares 11/03/21 10:32 11/03/21 Blood Cultures: No Data to Display Toxicology Panel: No Data to Display Panel: No Data to Display Imaging and Studies Imaging and Studies Study information below may be from another EMR and interpreted by another provider. Please see original notes in EMR for more complete details. EKG Summary: 10/21/21: sinus bakari, abnormal r progression. Anesthesia Assessment and Plan Anesthesia History Personal History: No History of Anesthesia Complications Family History: No Family History of Anesthesia Complications Exercise Tolerance Exercise Tolerance: Metabolic Equivalents>4 Pertinent Negatives Pertinent Negatives: No Symptoms of GERD, No Major Cardiovascular Symptoms or Complaints, No Major Pulmonary Symptoms or Complaints and No History of CVA/TIA Cardiac & Pulmonary Exam Cardiac Exam: Normal S1/S2 Heart Sounds Pulmonary Exam: Clear Bilateral Breath Sounds Implantable Cardiac Device Does patient have a Pacemaker or an ICD?: No Airway Exam Known Difficult Airway: No Mallampati Class: 2 Mouth Opening: Narrow (< 3cm) Thyromental Distance: Greater than 3 cm Neck Range of Motion: Full ROM Neck Circumference: Normal Teeth Condition: Normal Dentition and Other (tounge ring, which she will take out. ) ASA Classification ASA Score: ASA 2 Emergency Case?: No NPO Status NPO Status: NPO Clears >2 hours, Solids >8 hours Status Status: Negative HCG Anesthesia Plan Resuscitation Status: Full Code Anesthesia Technique: General Anesthesia Airway Planned: Natural Airway Monitors Used: Standard Monitors
[2021-11-04 12:30] VITALS: BP 110/83; PULSE 82; RESP 16; TEMP 37.3; O2SAT 96
[2021-11-04] MEDS: Lactated Ringers 1,000 ML 80 ML IV (13:32)
[2021-11-04 14:17] VITALS: BMI 32.6
--- NOTE | 2021-11-04 14:38 | NUR.NOTE ---
Nursing Note: when rounding on patient patient became quite agitated as anesthesia had just informed patient of a delay in her surgical time. she became loud and yeas crying with a raised voice about having to wait. i apologized to the patient and asked her what i could do to make things better, she continued to raise her voice and cry _ i brought her tissues and deescalated the situation. the patient apologized for her yelling. MD and anesthesia contacted to see what could be done to speed things along or obtain an order for anti anxiety medication
--- NOTE | 2021-11-04 14:55 | PDOC.DSDIS_ITS ---
Discharge Plan Disposition Patient Disposition: HOME Condition: Good Discharge Details Reason For Visit: Left carpal tunnel syndrome Attending Provider: Rowdy Gruber Primary Care Provider: Nupur Cordoba Home Meds and New Rx's Prescriptions: New oxycodone 5 mg tablet 5 mg PO Q6H PRN (Reason: severe post-operative pain) Qty: 12 RF: 0 Continued dextroamphetamine-amphetamine [Adderall XR] 20 mg capsule,extended release 24hr 20 mg PO DAILY RF: 0 albuterol sulfate [ProAir HFA] 90 mcg/actuation HFA aerosol inhaler 1 - 2 puff inhalation .Q4-6H PRNRF: 0 montelukast 10 mg tablet 10 mg PO DAILY RF: 0 ondansetron HCl [Zofran] 4 mg tablet 4 mg PO TID PRNRF: 0 hydroxyzine HCl 10 mg tablet 10 mg PO TID PRNRF: 0 methadone 10 mg/mL concentrate 90 mg PO DAILY RF: 0 acetaminophen 500 mg tablet 1,000 mg PO TID PRNRF: 0 meclizine 25 mg tablet 25 - 50 mg PO BID PRNRF: 0 bupropion HCl 300 mg tablet extended release 24 hr 300 mg PO QAM RF: 0 sumatriptan succinate [Imitrex] 50 mg tablet 50 mg PO ONCE RF: 0 hydroxyzine HCl 25 mg tablet 25 mg PO Q8H RF: 0 escitalopram oxalate 10 mg tablet 15 mg PO DAILY RF: 0 ibuprofen 600 mg tablet 600 mg PO TID PRNQty: 30 RF: 0 Discharge Instructions Stand Alone Forms: Yasmani Loomis Tunnel Release Referrals: Rowdy Gruber MD [ [facility] STAFF PHYSICIAN] - Activity:: Activity as Tolerated Remove Dressings/Wound Care:: 72 hours Shower/Bathe:: 72 hours Diet:: As Tolerated Discharge Orders Discharge Orders: Discharge Order (Routine); Ordered 11/04/21 Ordered By: Tawny Bahena DS: Diagnosis Discharge Diagnosis (1) Left carpal tunnel syndrome: Status: Acute
[2021-11-04] MEDS: ceFAZolin 2 GM/50 ML BAG IVPB (15:28)
[2021-11-04] MEDS: Sodium Bicarbonate 50 MEQ/50 ML VIAL (15:35)
[2021-11-04 15:55] VITALS: BP 105/72; PULSE 80; RESP 18; TEMP 36.2; O2SAT 97
--- NOTE | 2021-11-04 15:56 | W.ANESPOSTOP ---
Postoperative Evaluation Date, Time and Location Date Performed: 11/04/21 Time Performed: 15:56 Patient Location: Day Surgery Unit Vital Signs Most Recent Imported Vital Signs: Most Recent Vital Signs Most Recent Manually Entered Vital Signs: Adult Blood Pressure: 105/72 Heart Rate: 80 Respirations: 16 Oxygen Saturation (%): 99 Temperature (C): 36.2 C Pain Score (0-10 Scale): 5 Pain Score Most Recent Pain Score: Most Recent Assessment Mental Status: Arousable with meaningful communication Airway and Respiratory Function: Patent airway with normal (patient baseline) respiratory exam Cardiovascular Function: Hemodynamically Stable Hydration Status: Adequately Hydrated Nausea & Vomiting: No Nausea or Vomiting Pain: Pain is tolerable per patient Peripheral Nerve Block: Patient did not receive a nerve block
[2021-11-04 15:58] VITALS: BP 105/72; PULSE 80; RESP 16; TEMPC 36.2; O2SAT 99
[2021-11-04] MEDS: oxyCODONE 5 MG TAB PO (16:04)
[2021-11-04 16:20] VITALS: BP 100/74; PULSE 83; RESP 18; TEMP 36; O2SAT 98
--- NOTE | 2021-11-04 20:41 | ROE_ITS ---
Date of service: 11/04/21 Time of Service: 15:41 Operative Note Operative Note DATE OF PROCEDURE: 11/04/21 PRE-OP DIAGNOSIS: Left carpal tunnel syndrome POST-OP DIAGNOSIS: same PROCEDURE: Left Endoscopic Carpal Tunnel Release SURGEON: Rowdy Gruber ANESTHESIA TYPE: General:No Airway Refer to Anesthesia Record ESTIMATED BLOOD LOSS: 0 PATHOLOGY: none sent TOURNIQUET TIME: 5 COMPLICATIONS: None Patient was transported to: same day Patient's condition: stable Indications: I have seen Cammy in clinic for symptoms of carpal tunnel syndrome. The numbness, tingling, and pain limited function. Clinical exam findings with nerve conduction tests confirmed the diagnosis of carpal tunnel syndrome. Nonoperative measures such as bracing, time, activity modifications had been tried but disability and pain persisted. She had a previous carpal tunnel release on the right side with good results. Once again, I discussed c arpal tunnel release with the patient. I reviewed the risks of the procedure to include, but not limited to, bleeding, infection, pain, stiffness, incomplete release, damage to nerves or vessels, persistent numbness, recurrence. Despite these risks, the patient elected to proceed. Findings: There was tightened carpal tunnel. This was dilated and released successfully with the endoscopic with increased space within the tunnel. The antebrachial fascia was released proximally freeing the median nerve at the wrist. Procedure Description: Cammy was greeted in the preoperative holding area where the correct side was identified and marked. The consent was reviewed with the patient and signed. The history and physical was updated. All questions were answered. Cammy was taken back to the operating room. The patient was placed into the supine position on the operating room table with the left arm on an arm board. A nonsterile tourniquet was placed high onto the arm. All bony prominences were well padded. Prophylactic antibiotics in the form of Cefazolin were administered. The left arm was then prepped with Chloraprep and draped in a standard fashion with stockinette and extremity drape. A timeout to confirm correct identity, side and site, procedure, allergies, anesthesia, and medical concerns was performed. The surgical site was marked in the volar wrist creases in line with the radial border of the fourth ray. This area was anesthetized with approximately 6cc of 1% Lidocaine. The limb was then exsanguinated with an Esmarch. The skin was incised with a 15 blade, approximately 1cm. The skin only was cut and the deeper tissue was dissected bluntly with a tenotomy scissor, avoiding passing nerve and venous structures. The fascia was penetrated and opened bluntly. A two-prong skin hook was placed under this proximal fascial edge. A series of hamate finders were used to identify and dilate the carpal tunnel. Synovial elevator was used to free synovial attachments to the underside of the transverse carpal ligament. My thumb was kept in the palm to nova the distal extent of the carpal tunnel and correctly position the hand. The Microaire endoscope was inserted without difficulty and without resistance. Excellent visualization showed horizontally running fibers of the transverse carpal ligament (TCL). The distal extent of the TCL was visualized and the end of the scope palpated with the thumb. The blade was elevated and withdrawn from distal to proximal. The TCL was split into two flaps. The endoscope was reinserted to confirm complete release and any remnant ligament was incised. The scope was withdrawn and the proximal aspect of the carpal tunnel was grossly inspected and appeared release with the median nerve visible. The antebrachial fascia at the level of the wrist was then freed from the overlying skin and then the underlying median nerve with blunt dissection. This was transected longitudinally for about 3cm proximal to the wrist incision. The wound was then irrigated with easy flow of irrigant distally and proximally. The incision was closed with a single 4-0 Nylon suture. The wound was dressed with Xeroform, Gauze, Kerlix and Juan Carlos. The tourniquet was deflated with the initial dressing and held with some pressure. Blood flow returned easily to all digits with capillary refill less than 2 seconds. The patient tolerated the procedure well and was returned to the Same Day Surgery area in a stable cond ition suffering no known complication.
== END 2021-11-04 16:42 | disposition home or self-care (01) ==
PROVIDERS: PCP Nurse Practitioner Family; Visit Provider Student in an Organized Health Care Education/Training Program
PROC: 01N54ZZ Release Median Nerve, Percutaneous Endoscopic Approach (ICD-10-PCS; CPT 29848; principal; 2021-11-04 14:45)
DX: G56.02 Carpal tunnel syndrome, left upper limb (principal)
CPT/HCPCS: 29848; J0690; J1885; J2250; J2405

== ENCOUNTER 2021-12-10 11:37 | Outpatient (REF) | payer MEDICAID, SELFPAY ==
[2021-12-11 13:34] LABS: COVID-19 RT-PCR UVMMC Result Negative (Negative)
== END 2021-12-10 11:38 | disposition home or self-care (01) ==
LOC: LBN 11:37
PROVIDERS: PCP Nurse Practitioner Family; Visit Provider Nurse Practitioner Family
DX: Z20.822 Contact with and (suspected) exposure to COVID-19 (principal)
CPT/HCPCS: U0003

== ENCOUNTER 2022-12-11 14:45 | Outpatient (REF) | payer MEDICAID, SELFPAY ==
[2022-12-13 12:21] LABS: COVID-19 RT-PCR UVMMC Result Negative (Negative)
== END 2022-12-11 14:46 | disposition home or self-care (01) ==
LOC: LBN 14:45
PROVIDERS: PCP Nurse Practitioner Family; Visit Provider Physician Assistant Medical
DX: Z20.822 Contact with and (suspected) exposure to COVID-19 (principal); R05.8 Other specified cough
CPT/HCPCS: U0003

== ENCOUNTER 2025-04-10 21:22 | Outpatient (REF) | payer MEDICAID, SELFPAY | END 2025-04-10 21:23 | disposition home or self-care (01) | LOC: NCHCN 21:22 | PROVIDERS: PCP Nurse Practitioner Family; Visit Provider Nurse Practitioner Family | DX: N89.8 Other specified noninflammatory disorders of vagina (principal) | CPT/HCPCS: 87480; 87510; 87660 ==